=== PATIENT | male | born 1980 | race African-American/Black ===

== ENCOUNTER 2017-05-02 11:59 | Emergency (ER) | payer OTHER ==
[~2017-05-02] VITALS: Ht 188 cm; Wt 117.9 kg
[~2017-05-02 11:59] MED LIST: DOXYCYCLINE 10100 M1 PO; IBUPROFEN 800800 MG PO; ULTRAM ER100 MG PO
[2017-05-02] MEDS ORDERED: ULTRAM 50MG TAB50 MG PO (12:57)
[2017-05-02] MEDS ORDERED: IBUPROFEN 600600 M1 PO (12:57)
== END 2017-05-02 13:11 | disposition home or self-care (01) ==
LOC: ER 11:59
DX: S92.402A Displaced unspecified fracture of left great toe, initial encounter for closed fracture (principal); I10 Essential (primary) hypertension; W50.0XXA Accidental hit or strike by another person, initial encounter; Y93.89 Activity, other specified; Y92.89 Other specified places as the place of occurrence of the external cause; Y99.8 Other external cause status

== ENCOUNTER 2019-02-12 19:08 | Emergency (ER) | payer OTHER ==
[~2019-02-12] VITALS: Ht 185.4 cm; Wt 113.4 kg
[~2019-02-12 19:08] MED LIST changes: +IBUPROFEN 600600 M1 PO; +ULTRAM 50MG TAB50 MG PO
[2019-02-12] MEDS ORDERED: IBUPROFEN 600600 M1 PO (20:23)
[2019-02-12 21:44] VITALS: BP 159/98
== END 2019-02-12 21:45 | disposition home or self-care (01) ==
LOC: ER 19:08
DX: M20.012 Mallet finger of left finger(s) (principal); F17.210 Nicotine dependence, cigarettes, uncomplicated; I10 Essential (primary) hypertension; X50.1XXA Overexertion from prolonged static or awkward postures, initial encounter; Y93.89 Activity, other specified; Y92.69 Other specified industrial and construction area as the place of occurrence of the external cause; Y99.9 Unspecified external cause status